=== PATIENT | female | born 1955 | race African-American/Black ===

== ENCOUNTER 2020-02-25 07:57 | Emergency (ER) | payer OTHER ==
[~2020-02-25] VITALS: Ht 157.5 cm; Wt 108.9 kg
[2020-02-25] MEDS ORDERED: LOSARTAN-HCTZ1 EAC3 PO (08:24)
[2020-02-25] MEDS ORDERED: AMBIEN5 MG PO (08:26)
[2020-02-25] MEDS ORDERED: LIPITOR10 MG PO (08:31)
--- NOTE | 2020-02-25 08:53 | EKG ---
[facility] [place] [address] ELECTROCARDIOGRAM REPORT Name: RICKY GARCIA Room #: PRE M..#: [id number] Admission: Attend Phys: Discharge: Date of : 53 Report #: [id number] THIS REPORT FOR: cc: Babar Hoyt MD [facility] ~ THIS REPORT FOR: //name// [facility] ED Test Date: 2020-02-25 Test Time: 08:31:30 Pat Name: RICKY GARCIA Department: Room: Gender: F Ream Cutter: bennymarielle : 1955 Requested By: Saeed Burks Order Number: [id number] MD: Babar Hoyt Measurements Intervals [place] Rate: 97 P: 74 [place]: 194 QRS: 24 QRSD: 83 T: 12 QT: 368 QTc: 468 Interpretive Statements Sinus rhythm Normal tracing No previous ECG available for comparison Electronically Signed On 02-25-2020 8:51:59 CDT by Babar Hoyt [email or web address] <ELECTRONICALLY SIGNED> By: Babar Hoyt MD, FAC 02/25/20 0851 0831 0831 Babar Hoyt MD, FACC /EPI
[2020-02-25 09:41] LABS: ABSOLUTE NEUTROPHILS 3.5 thou/uL (1.4-8.2); BASOPHILS 0.6 % (0.0-2.0); EOSINOPHILS 1.2 % (0.0-3.0); HEMATOCRIT 42.3 % (37.0-47.0); HEMOGLOBIN 14.4 gm/dL (12.0-15.0); LYMPHOCYTES 35.8 % (24.0-44.0); MCH 32.4 pg (26.0-34.0); MCHC 34.1 g/dL (28.0-37.0); MONOCYTES 5.4 % (1.0-8.0); PLATELET COUNT 297 thou/uL (150-400); RBC 4.46 mil/uL (4.20-5.00); RDW 13.7 % (10.5-14.5); WBC 6.1 thou/uL (4.0-11.0)
[2020-02-25 09:46] LABS: ANION GAP 9 mmol/L (7-16); BUN 11 mg/dL (7-18); CALCIUM 9.5 mg/dL (8.5-10.1); CHLORIDE 100 mmol/L (98-107); CO2 30 mmol/L (21-32); GLUCOSE 95 mg/dL (74-106); POTASSIUM 3.5 mmol/L (3.5-5.1); SODIUM 139 mmol/L (136-145)
[2020-02-25 09:55] LABS: MAGNESIUM 2.3 mg/dL (1.8-2.4); TROPONIN-I <0.06 ng/mL (<0.06)
[2020-02-25 10:13] VITALS: BP 135/78
== END 2020-02-25 10:13 | disposition home or self-care (01) ==
LOC: EDBD 07:57 → ER 07:57
PROVIDERS: Emergency Medicine
DX: S01.01XA Laceration without foreign body of scalp, initial encounter (principal); T42.6X5A Adverse effect of other antiepileptic and sedative-hypnotic drugs, initial encounter; E66.9 Obesity, unspecified; Z68.41 Body mass index [BMI] 40.0-44.9, adult; Z87.891 Personal history of nicotine dependence; W18.39XA Other fall on same level, initial encounter; Y93.89 Activity, other specified; Y92.89 Other specified places as the place of occurrence of the external cause; Y99.8 Other external cause status